=== PATIENT | female | born 1995 | race Caucasian/White ===

== ENCOUNTER 2018-02-02 12:19 | Day surgery (SDC) | payer BC ==
[~2018-02-02] VITALS: Ht 157.5 cm; Wt 52.2 kg
[~2018-02-02 12:19] MED LIST: ONE DAILY WOME1 EACH PO; PROZAC40 MG PO; WELLBUTRIN SR150 MG PO
[2018-02-02 13:10] VITALS: BP 113/68
[2018-02-02] MEDS ORDERED: DIALYVITE 8001 EAC1 PO (13:13)
[2018-02-02] MEDS ORDERED: 5-HTP100 MG PO (13:14)
[2018-02-02] MEDS ORDERED: PURE L-TYROSIN500 MG PO (13:16)
[2018-02-02] MEDS ORDERED: PAN-C 500 TABL1 EACH PO (13:17)
[2018-02-02 17:40] VITALS: BP 103/58
[2018-02-02 18:35] VITALS: BP 100/56
[2018-02-02 19:11] VITALS: BP 103/57
== END 2018-02-02 19:20 | disposition home or self-care (01) ==
LOC: SDC 12:19
PROC: 0UJD8ZZ Inspection of Uterus and Cervix, Via Natural or Artificial Opening Endoscopic (ICD-10-PCS; principal; 2018-02-02)
PROC: 0UB14ZZ Excision of Left Ovary, Percutaneous Endoscopic Approach (ICD-10-PCS; principal; 2018-02-02)
PROC: 0U544ZZ Destruction of Uterine Supporting Structure, Percutaneous Endoscopic Approach (ICD-10-PCS; principal; 2018-02-02)
DX: D27.1 Benign neoplasm of left ovary (principal); N80.3 Endometriosis of pelvic peritoneum; N92.6 Irregular menstruation, unspecified; R10.2 Pelvic and perineal pain; K21.9 Gastro-esophageal reflux disease without esophagitis; Z80.3 Family history of malignant neoplasm of breast; Z88.0 Allergy status to penicillin; Z88.1 Allergy status to other antibiotic agents; Z87.891 Personal history of nicotine dependence
CPT/HCPCS: 88305; J0131; J1170; J1580; J1885; J2250; J2405; J2710; J3010; J7050; J7643